=== PATIENT | male | born 1960 ===

== ENCOUNTER 2024-11-19 08:29 | Emergency (ER) | payer OTHER, SELFPAY ==
--- NOTE | ~2024-11-19 | XR_ITS ---
EXAMINATION: XR CHEST CLINICAL INFORMATION: cp COMPARISON: None available. TECHNIQUE: 2 views of the chest were obtained. FINDINGS: The cardiac, hilar, and mediastinal contours are normal. The lungs are clear bilaterally. There is no pneumothorax or pleural effusion. There is no focal osseous or soft tissue abnormality. There are degenerative spinal changes, and right shoulder joint changes. XR/XR chest 2V IMPRESSION: No active pulmonary disease. Electronically signed by: Zeeshan Gilmore MD 11/19/2024 09:03 AM EDT
--- NOTE | 2024-11-19 08:36 | ECG_ITS ---
Test Reason : rodrisa Blood Pressure : */* mmHG Vent. Rate : 74 BPM Atrial Rate : 74 BPM P-R Int : 192 ms QRS Dur : 98 ms QT Int : 404 ms P-R-T Axes : 56 -21 48 degrees QTcB Int : 448 ms Artifact in tracing Normal sinus rhythm Normal ECG When compared with ECG of 30-Jan-2009 06:41, Vent. rate has increased by 31 bpm Referred By: Generic ED Physician Electronically Signed By: CARLEY FERNANDEZ
[2024-11-19 08:46] VITALS: BP 144/78; PULSE 68; RESP 19; TEMP 36.6; O2SAT 98; BMI 27.3
[2024-11-19 09:14] LABS: MANUAL DIFF FLAG NO
[2024-11-19 09:18] LABS: Basophils Absolute Auto 0.1 X10*3/uL (0.0-0.2); Basophils Percent Auto 0.8 % (0-2); Eosinophils Absolute Auto 0.2 X10*3/uL (0.0-0.4); Eosinophils Percent Auto 2.1 % (0-4); Hematocrit 42.1 % (42.0-52.0); Hemoglobin 14.6 g/dl (14.0-18.0); Imm Gran Abs Auto 0.02 X10*3/uL (0.00-0.03); Imm Gran Pct Auto 0.3 % (0.0-0.4); Lymphocytes Percent Auto 26.4 % (20-40); Mean Corpuscular HGB Conc 34.7 g/dl (31.0-36.0); Mean Corpuscular Hemoglobin 31.5 pg (27.0-33.0); Mean Corpuscular Volume 90.7 fL (80.0-98.0); Mean Platelet Volume 8.2 fL (9.4-12.4); Monocytes Absolute Auto 0.5 X10*3/uL (0.1-1.2); Neutrophils Absolute Auto 4.9 x10*3/uL (2.0-8.3); Neutrophils Percent Auto 64.4 % (45-73); Platelet Count 163 X10*3/uL (160-400); Red Blood Count 4.64 X10*6/uL (4.60-5.80); Red Cell Distribution Width 12.1 % (11.0-16.0); White Blood Count 7.5 X10*3/uL (4.8-10.8)
[2024-11-19 09:28] LABS: Prothrombin Time 11.5 SEC (10.9-12.4)
[2024-11-19 09:37] LABS: Anion Gap 10 (12-20); Blood Urea Nitrogen 15 mg/dL (9-16); Calcium 9.2 mg/dL (8.4-10.2); Carbon Dioxide 25 mmol/L (22-29); Chloride 109 mmol/L (96-108); Creatinine Clr Calc Pharmacy 74.8; Estimated Glomerular Filt Rate > 60; Glucose Random 207 mg/dL (60-115); Potassium 4.3 mmol/L (3.3-5.1); Sodium 140 mmol/L (135-145)
[2024-11-19 09:45] LABS: B Type Natriuretic Peptide 10 pg/mL (<100); Troponin-I High Sensitivity 3.3 ng/L (<3.5-35.0)
[2024-11-19 10:23] LABS: Influenza A PCR NEGATIVE (Negative); Influenza B PCR NEGATIVE (Negative); Resp Syncy Virus RNA Qual PCR NEGATIVE (Negative); SARS COV2 PCR INHOUSE NEGATIVE (Negative)
--- NOTE | 2024-11-19 15:51 | ED_ITS ---
HPI - Chest Pain General Chief Complaint: Chest Pain Stated Complaint: chest pain Time Seen by Provider: 11/19/24 15:51 Source: patient Mode of arrival: ambulatory Limitations: no limitations History of Present Illness ED Provider: Eve Macdonald PA-C HPI narrative: Patient is a 64 year old male with a past medical history of T2DM (On metformin) and unknown valve abnormality (for which he sees a human services care specialist) who presents to the ED for chest pain. He states that he began experiencing the pain 1 week ago while he was doing his usual daily activities. The pain is located on the left side of his chest, described as a sharp pressure, and non radiating. He states the pain is worse when lying down and improves significantly while sitting up. It does not increase with exertion and is not relieved with rest. He denies any dizziness, syncope, shortness of breath, abdominal pain, nausea, vomiting, or recent illness. MD complaint: chest pain Onset (ago): week(s) Timing of current episode: constant Prior episodes: No Pain location: left chest Pain radiation: none Quality: sharp Relieving factors: leaning forward and sitting upright Exacerbating factors: supine Risk Factors Coronary artery disease risk factors: diabetes and hypertension Related Data Allergies Allergy/AdvReac Type Severity Reaction Status Date / Time No Known Allergies Allergy Mild NONE Verified 11/19/24 08:48 Review of Systems 2 Review of Systems: Yes all other systems are reviewed and are negative Constitutional: Constitutional: Reports no additional constitutional complaints, Denies chills, Denies fever(s) and Denies night sweats Eyes: Eyes: Reports no additional eye complaints, Denies blurry vision, Denies change in vision, Denies diplopia, Denies eye discharge, Denies loss of vision and Denies eye pain ENT: Denies dizziness Cardiovascular: Cardiovascular: Reports no additional cardiovascular complaints, Reports chest pain, Denies lightheadedness, Denies Loss of Consciousness and Denies dyspnea Respiratory: Respiratory: Reports no additional respiratory complaints and Denies dyspnea Gastrointestinal: Gastrointestinal: Reports no additional gastrointestinal complaints, Denies abdominal pain, Denies melena, Denies hematochezia, Denies change in bowel habits and Denies change in stool character Genitourinary: Genitourinary: Reports no additional male genitourinary complaints, Denies hematuria, Denies oliguria, Denies difficulty urinating, Denies dysuria, Denies urinary frequency, Denies urinary hesitancy, Denies urinary incontinence and Denies urinary urgency Musculoskeletal: Musculoskeletal: Reports no additional musculoskeletal complaints, Denies numbness and Denies tingling Neurologic: Denies dizziness, Denies loss of vision, Denies numbness and Denies tingling Psychiatric: Psychiatric: Reports no additional psychiatric complaints Endocrine: Endocrine: Reports no additional endocrine complaints Hematologic/Lymphatic: Hematologic/Lymphatic: Reports no additional hematologic/lymphatic complaints Allergic/Immunologic: Allergic/Immunologic: Reports no additional allergic/immunologic complaints [facility] Past Medical History Attestation statement: The following information was validated with the patient. Source: old records reviewed and nursing notes reviewed Social History Social History Advance Directives: No Advance Directives Information Provided: Yes Do you have a plan to hurt others: No Plan Physical Exam 2 Vital Signs: Vital Signs: Last Vital Signs Temp 97.4 F 11/19/24 16:40 Pulse 63 11/19/24 16:40 Resp 16 11/19/24 16:40 BP 129/81 11/19/24 16:40 Pulse Ox 99 11/19/24 16:40 O2 Del Method Room Air 11/19/24 16:40 BMI result Body Mass Index 27.3 Const: General: cooperative, no acute distress, alert and awake Nutritional Appearance: well nourished Orientation/consciousness: patient oriented x3 Limitations: no limitations HEENT: Head: Yes normal to inspection and Yes atraumatic Ears: hearing grossly normal bilaterally and external ears normal General nose exam: Normal external nose present, no nasal discharge noted and no epistaxis Face and sinus: Yes normal facial exam, No abrasion and No laceration Mouth: Normal oral and palatal mucosa present, no drooling and no muffled voice Eyes: General: appearance normal, both eyes and all related structures P eriorbital: periorbital findings normal Eyelids: Yes eyelids normal C onjunctivae: conjunctivae normal Pupils: Equal, round and reactive pupils present EOM: EOMs intact bilaterally Neck: Neck: Yes normal visual inspection, Yes full ROM and Yes no lymphadenopathy Chest: Chest palpation & inspection: normal inspection of the chest Resp: Effort & Inspection: normal respiratory effort and able to speak in complete sentences Cardio: Palpation: normal PMI Rate: regular rate Rhythm: regular rhythm Heart sounds: S1 normal heart sound present, S2 normal heart sound present and Murmur heart sound present GI: Inspection: Yes normal to inspection Neuro: General: patient oriented x3, moves all extremities and CN's II-XI intact bilaterally Cranial nerves: Yes Equal, round and reactive pupils present Cognition (Neuro): normal cognition Extrem: General: Yes normal to inspection, Yes full ROM and Yes capillary refill normal Psych: Appearance: grossly normal Mental Status: mental status grossly normal Affect: normal affect Attitude: cooperative Thought process: N ormal thought process present Thought content: Normal thought content present Insight: Good insight present (Psych) Medications Administered Discontinued Medications Generic Name Dose Route Start Last Admin Trade Name Freq PRN Reason Stop Dose Admin Ketorolac Tromethamine 15 mg 11/19/24 16:08 11/19/24 16:34 Ketorolac Tromethamine 15 Mg/Ml Vial IM 11/19/24 16:09 15 mg ONCE ONE Administration Medical Decision Making Medical Decision Making [facility] Narrative: Patient is a 64 year old assigned male at with a history of DM and a cardiac valve issue presenting to the emergency department today with left sided chest pain. Patient's physical exam showed a known heart murmur but was otherwise unremarkable. Patient's blood work was unremarkable. Patient's EKG was unremarkable. Patient's chest x-ray showed no acute process. Patient's clinical presentation is most consistent with pleural chest pain vs. chest wall pain vs. atypical chest pain. Patient's clinical presentation and work up is not consistent with a cardiac event. I explained my physical exam findings as well as all test results to the patient. I answered all questions asked by the patient. I stressed the importance of the patient taking his medication as directed (either prescribed or as the over the counter packaging recommends). I stressed the importance of the patient following up with his primary care provider and with his human services care specialist who he has an appointment scheduled with in December. I stressed the importance of the patient returning to the emergency department immediately if his symptoms were to worsen or if he were to develop any dizziness, shortness of breath, difficulty breathing, chest pain, blurry vision, loss of vision, nausea, vomiting, abdominal pain, fever, chills, back pain, or any other complaints. Patient verbalized agreement and understanding with this treatment plan and discharge. Differential Diagnosis Differential Diagnoses: The differential diagnosis associated with the presentation includes Chest pain Chest wall pain Atypical chest pain NSTEMI STEMI Pleurisy Admission/Observation Consideration of admission/observation: Escalation of care including admission/observation considered Patient would have been admitted to the hospital had his work up had any findings where hospital admission was appropriate and his clinical presentation warranted hospital admission. Lab Data [facility] Lab Attestation statement: I reviewed the patient's lab results. My interpretation of these results are in the [facility] Rationale portion of this note. 11/19/24 09:09 11/19/24 09:09 Labs: Lab Results 11/19/24 Range/Units 09:09 WBC 7.5 (4.8-10.8) X10*3/uL RBC 4.64 (4.60-5.80) X10*6/uL Hgb 14.6 (14.0-18.0) g/dl Hct 42.1 (42.0-52.0) % MCV 90.7 (80.0-98.0) fL MCH 31.5 (27.0-33.0) pg MCHC 34.7 (31.0-36.0) g/dl RDW 12.1 (11.0-16.0) % Plt Count 163 (160-400) X10*3/uL MPV 8.2 L (9.4-12.4) fL Immature Gran % (Auto) 0.3 (0.0-0.4) % Neut % (Auto) 64.4 (45-73) % Lymph % (Auto) 26.4 (20-40) % Hoke % (Auto) 6.0 (2-11) % Eos % (Auto) 2.1 (0-4) % Baso % (Auto) 0.8 (0-2) % Lymph # (Auto) 2.0 (1.2-4.9) X10*3/uL Hoke # (Auto) 0.5 (0.1-1.2) X10*3/uL Eos # (Auto) 0.2 (0.0-0.4) X10*3/uL Baso # (Auto) 0.1 (0.0-0.2) X10*3/uL Abs Immat Gran (auto) 0.02 (0.00-0.03) X10*3/uL Absolute Neuts (auto) 4.9 (2.0-8.3) x10*3/uL Absolute Nucleated RBC 0.000 (0.0-0.012) X10*3/uL Nucleated RBC % (auto) 0.0 (0.0-0.2) /100WBC PT 11.5 (10.9-12.4) SEC INR 1.0 (0.9-1.1) Sodium 140 (135-145) mmol/L Potassium 4.3 (3.3-5.1) mmol/L Chloride 109 H (96-108) mmol/L Carbon Dioxide 25 (22-29) mmol/L Anion Gap 10 L (12-20) BUN 15 (9-16) mg/dL Creatinine 1.01 (0.5-1.4) mg/dL Estim Creat Clear Calc 74.8 Estimated GFR > 60 Random Glucose 207 H (60-115) mg/dL Calcium 9.2 (8.4-10.2) mg/dL Troponin I High Sens 3.3 (<3.5-35.0) ng/L B-Natriuretic Peptide 10 (<100) pg/mL Influenza Type A (PCR) NEGATIVE (Negative) Influenza Type B (PCR) NEGATIVE (Negative) RSV RNA Qual (PCR) NEGATIVE (Negative) SARS-CoV-2 RNA (RT-PCR) NEGATIVE (Negative) Independent Interpretation I performed an independent interpretation of an: EKG and Plain X-Ray Interpretation: My interpretation is in agreement with the radiologist's impression of this imaging study. L EXAMINATION: XR CHEST CLINICAL INFORMATION: cp COMPARISON: None available. TECHNIQUE: 2 views of the chest were obtained. FINDINGS: The cardiac, hilar, and mediastinal contours are normal. The lungs are clear bilaterally. There is no pneumothorax or pleural effusion. There is no focal osseous or soft tissue abnormality. There are degenerative spinal changes, and right shoulder joint changes. XR/XR chest 2V IMPRESSION: No active pulmonary disease. Electronically signed by: Zeeshan Gilmore MD 11/19/2024 09:03 AM EDT Dictated By: Zeeshan Gilmore MD Signed By: Electronically signed by Zeeshan Gilmore MD 11/19/24 0903 I independently interpreted this EKG and am in agreement with the below findings: Vent. Rate: 74 BPM Atrial Rate: 74 BPM P-R Int: 192 ms QRS Dur: 98 ms QT Int: 404 ms P-R-T Axes: 56 -21 48 degrees QTcB Int: 448 ms Artifact in tracing Normal sinus rhythm Normal ECG When compared with ECG of 30-Jan-2009 06:41, Vent. rate has increased by 31 bpm Referred By: Generic ED Physician Electronically Signed By: LEVI FERNANDEZ Dictated By: Levi Fernandez MD Signed By: Electronically signed by Levi Fernandez MD 11/19/24 1136 Radiology Impression Discussion of test interpretation with radiology: I have reviewed the radiologist's reading. Chronic Conditions Patient?s care impacted by: Diabetes Discharge Plan Discharge Clinical Impression: Atypical chest pain Patient Disposition: Home, Self-Care Instructions: Chest Wall Pain (ED) Additional Instructions: Follow up with your primary care provider and your human services care specialist. Return to the emergency department immediately if your symptoms worsen or if you develop any numbness, tingling, dizziness, shortness of breath, difficulty breathing, chest pain, blurry vision, loss of vision, nausea, vomiting, abdominal pain, fever, chills, back pain, or any other complaints. Please see the information below about our Patient Portal. If you are not yet enrolled in the [facility] Patient Portal, you will receive an enrollment email invitation following your visit to any [facility] setting. You may also self-enroll in the Patient Portal by visiting our website: [email or web address] The following information is required to access the Patient Portal: - Your [facility] Medical Record Number - Your personal home email address (must match what is in your electronic medical record, Registration staff can assist with this) - Name - Date of Capabilities of the Patient Portal: - Message some providers - View upcoming appointments - Access your health summary, medical history, and visit history - View current conditions and allergies - View procedure and lab results - View your medications, including guidelines, side effects, and precautions - Complete pre-appointment questionnaires requested by your provider - Ready summary reports of your office visits and procedures To access the Patient Portal Mobile [employer], follow these directions: - Search [employer] in the [employer] Store or [employer] Store - Download the [employer] - Search for [facility] - Enter your login/password Referrals: Ji House DO [Primary Care Provider] - Interventions: ED Discharge Assessment Last Done: 11/19/24 16:40 Discharge Date/Time: 11/19/24 16:40 Print Language: Arabic
[2024-11-19 16:18] VITALS: BP 129/81; PULSE 63; RESP 16; TEMP 36.3; O2SAT 99
[2024-11-19] MEDS: Ketorolac Tromethamine 15 MG/ML VIAL IM (16:34)
[2024-11-19 16:40] VITALS: BP 129/81; PULSE 63; RESP 16; TEMP 36.3; O2SAT 99
== END 2024-11-19 16:40 | disposition home or self-care (01) ==
PROVIDERS: Emergency Provider Student in an Organized Health Care Education/Training Program; PCP Family Medicine
DX: R07.89 Other chest pain (principal); Z03.818 Encounter for observation for suspected exposure to other biological agents ruled out; E11.9 Type 2 diabetes mellitus without complications
CPT/HCPCS: 0241U; 36415; 71046; 80048; 83880; 84484; 85025; 85610; 93005; 96372; 99284; J1885

== ENCOUNTER → 2024-11-19 08:36 | Outpatient (BNV) | payer BC, SELFPAY | PROVIDERS: PCP Family Medicine; Visit Provider Internal Medicine | DX: R07.9 Chest pain, unspecified (principal) | CPT/HCPCS: 93010 ==

== ENCOUNTER → 2024-11-19 08:48 | Outpatient (BNV) | payer BC, SELFPAY | PROVIDERS: PCP Family Medicine; Visit Provider Radiology Diagnostic Radiology | DX: R07.9 Chest pain, unspecified (principal) | CPT/HCPCS: 71046 ==